=== PATIENT | male | born 1970 | race Caucasian/White ===

== ENCOUNTER 2018-07-18 10:13 | Day surgery (SDC) | payer OTHER ==
[~2018-07-18] VITALS: Ht 180.3 cm; Wt 96.7 kg
[2018-07-18 10:17] VITALS: BP 129/80; PULSE 61; TEMP 97.9
[2018-07-18] MEDS ORDERED: MOTRIN 200200 MG/TAB PO (10:30)
[2018-07-18 14:20] VITALS: BP 122/71; PULSE 55; TEMP 97.6
--- NOTE | 2018-07-18 14:20 | NUR ---
TO RM 5 PER CART FROM PACU. ALERT ORIENTED X3, UPON RETURNING TO RM UP AND AMBULATED TO BATHROOM.VOIDED AND TOLERATED WELL. PATIENT STATED BLOOD IN URINE AND A FEW BLOOD CLOTS. DENIES PAIN OR DISCOMFORT AT THIS TIME. DENIES NAUSEA OR VOMITING.
[2018-07-18 14:35] VITALS: BP 124/81; PULSE 57
--- NOTE | 2018-07-18 14:35 | NUR ---
RECEIVED WATER, CARLA. PUDDING AND MUFFIN.
[2018-07-18 14:50] VITALS: BP 136/74; PULSE 59
--- NOTE | 2018-07-18 14:50 | NUR ---
ATE 100% AND TOLERATED WELL.
[2018-07-18] MEDS ORDERED: NORCO 325 MG-51 TAB PO (15:03)
[2018-07-18] MEDS ORDERED: PYRIDIUM 100MG100 MG PO (15:04)
[2018-07-18 15:05] VITALS: BP 129/79; PULSE 58
--- NOTE | 2018-07-18 15:05 | NUR ---
UP AND AMBULATED TO BATHROOM 2ND TIME AND VOIDED.
--- NOTE | 2018-07-18 15:20 | NUR ---
DISCONTINUED INT ON L AC AND INT ON R HAND.
--- NOTE | 2018-07-18 15:25 | NUR ---
RECEIVED DISCHARGE INSTRUCTIONS AND VERBALIZED UNDERSTANDING. PATIENT GETTING DRESSED WITH 'S ASSIST.
--- NOTE | 2018-07-18 15:35 | NUR ---
DISCHARGED PER WC BY NURSING STAFF TO PRIVATE CAR IN CARE OF - JAMES.
== END 2018-07-18 15:59 | disposition home or self-care (01) ==
LOC: SDCO 10:13
DX: N20.1 Calculus of ureter (principal); F17.210 Nicotine dependence, cigarettes, uncomplicated; Z87.442 Personal history of urinary calculi
CPT/HCPCS: C1769; C2617; J0690; J2704; J3010; J7120

== ENCOUNTER 2021-12-19 13:03 | Outpatient (RCR) | payer OTHER ==
[~2021-12-19 13:03] MED LIST: MOTRIN 200200 MG/TAB PO; NORCO 325 MG-51 TAB PO; PYRIDIUM 100MG100 MG PO
== END 2022-01-16 | disposition home or self-care (01) ==
LOC: WSOH
DX: S93.402D Sprain of unspecified ligament of left ankle, subsequent encounter (principal); F41.8 Other specified anxiety disorders; Y99.0 Civilian activity done for income or pay
CPT/HCPCS: 24091; A6549

== ENCOUNTER 2023-10-19 10:37 | Day surgery (SDC) | payer OTHER ==
[~2023-10-19] VITALS: Ht 180.3 cm; Wt 86.8 kg
[~2023-10-19 10:37] MED LIST changes: +LR 1,000 ML IV SCH; +Ondansetron 4 MG/2 ML VIAL IV PRN
[2023-10-19 11:01] VITALS: BP 130/90; PULSE 60; TEMP 97.6
[2023-10-19] MEDS ORDERED: Lidocaine PF 2% (20 MG/ML) 5 ML VIAL ONE (11:50)
[2023-10-19] MEDS ORDERED: fentaNYL 50 MCG/ML 2 ML VIAL ONE (11:50)
[2023-10-19 12:25] VITALS: BP 108/85; PULSE 73; TEMP 97.4
--- NOTE | 2023-10-19 12:25 | NUR ---
PATIENT AMBULATED TO CHAIR WITH STEADY GAIT, ASSIST OF 2. ALERT AND AWAKE. DENIES PAIN, NAUSEA AND SHORTNESS OF BREATH. BREATHING REGULAR AND UNLABORED ON ROOM AIR. SKIN WARM AND DRY. IV IN PLACE. NURSE HANDOFF COMPLETED IN ROOM. SEE CHART FOR VITAL SIGNS. PATIENT HAD WATER AND A MUFFIN, BOTH TOLERATED WELL WITH NO DYSPHAGIA.
[2023-10-19 12:30] VITALS: BP 113/72; PULSE 78
[2023-10-19 12:45] VITALS: BP 100/78; PULSE 58
[2023-10-19 13:00] VITALS: BP 123/82; PULSE 63
--- NOTE | 2023-10-19 13:07 | NUR ---
1300: DISCHARGE TEACHING COMPLETED WITH PRINTED EDUCATION AND INSTRUCTIONS SENT HOME WITH PATIENT. PATIENT VERBALIZED UNDERSTANDING OF TEACHING. 1303: MET WITH PATIENT AND SPOUSE IN ROOM TO DISCUSS PROCEDURE. 1307: IV REMOVED. GAUZE AND COBAN PLACED OVER SITE. 1307: PATIENT DISCHARGED HOME WITH [facility].
== END 2023-10-19 13:07 | disposition home or self-care (01) ==
LOC: SDCO 10:37
DX: Z12.11 Encounter for screening for malignant neoplasm of colon (principal); D12.0 Benign neoplasm of cecum; K57.30 Diverticulosis of large intestine without perforation or abscess without bleeding; G47.33 Obstructive sleep apnea (adult) (pediatric); Z91.199 Patient's noncompliance with other medical treatment and regimen due to unspecified reason
CPT/HCPCS: J2704; J3010; J7120